=== PATIENT | female | born 1975 | race Caucasian/White ===

== ENCOUNTER 2020-03-30 13:56 | Emergency (ER) | payer OTHER | END 2020-03-30 14:55 | disposition home or self-care (01) | LOC: JVIRT 13:56 | DX: Z11.52 Encounter for screening for COVID-19 (principal) | CPT/HCPCS: C9803; G2012-GT; U0003 ==

== ENCOUNTER 2020-05-13 09:58 | Emergency (ER) | payer OTHER | END 2020-05-13 11:42 | disposition home or self-care (01) | LOC: JVIRT 09:58 | DX: Z11.52 Encounter for screening for COVID-19 (principal) | CPT/HCPCS: C9803; G2251-GT; U0003 ==